=== PATIENT | female | born 1955 | race Caucasian/White ===

== ENCOUNTER 2019-07-10 04:47 | Inpatient (IN) ==
--- NOTE | 2019-06-06 11:54 | PAT Medication Instructions ---
Medication Instructions Date of Service June 06, 2019 Home Medications Lactobacillus acidoph-pectin [Acidophilus-Pectin] 2 tab PO QAM allopurinol [Zyloprim] 100 mg PO QAM diltiazem HCl [Cardizem CD] 360 mg PO QPM lorazepam 1 mg PO BID PRN metformin 500 mg PO BID multivitamin 1 tab PO QAM rivaroxaban [Xarelto] 20 mg PO PM rosuvastatin [Crestor] 10 mg PO QPM ASK your prescriber and surgeon rivaroxaban [Xarelto] 20 mg PO PM - Will need to be held 72 hours prior to surgery to receive a spinal DO NOT take the morning of surgery Lactobacillus acidoph-pectin [Acidophilus-Pectin] 2 tab PO QAM metformin 500 mg PO BID multivitamin 1 tab PO QAM Take morning of surgery With a small sip of water, OTHERWISE NOTHING TO EAT OR DRINK AFTER MIDNIGHT: allopurinol [Zyloprim] 100 mg PO QAM lorazepam 1 mg PO BID NEEDED (if needed; STOP four hours before surgery) Take evening before surgery diltiazem HCl [Cardizem CD] 360 mg PO QPM lorazepam 1 mg PO BID NEEDED (if needed) metformin 500 mg PO BID rosuvastatin [Crestor] 10 mg PO QPM Other Notes If you have any questions please call us at [phone] or [phone] or [phone] or [phone]
--- NOTE | 2019-06-06 13:34 | Anesthesiology Consultation ---
Date of Service June 06, 2019 Assessment & Plan (1) Encounter for pre-operative examination: - No previous anesthesia records available. Chart Review Chart Review: Acceptable Risk for Surgery and Patient seen in Pre Admission Test ing Consults Requested medical (Dr. Judd (06/08)) Patient was seen by PCPs office on 06/08/19 for pre-operative evaluation. Per note from that visit, "Patient has acceptable risks for right total knee replacement." Teaching & Discussion Pre-Anesthesia Teaching/Discussion Notes: Instructed NPO after midnight before surgery, except medications with 15 cc of water. Medication instructions provided according to the PAT guidelines. History Surgery Operation Date: 07/10/19 07:00 Proposed Procedures p Right Total Knee Arthroplasty - Ahmet Herrera MD Height/Weight Height: 5 ft 5 in Weight: 112.4 kg Allergies Allergy/AdvReac Type Severity Reaction Status Date / Time No Known Allergies Allergy Unverified 06/02/19 14:20 Medications Home Medications Medication Instructions Recorded Confirmed Last Taken Lactobacillus acidoph-pectin 2 tab PO QAM 06/02/19 06/02/19 Unknown [Acidophilus-Pectin] allopurinol [Zyloprim] 100 mg PO QAM 06/02/19 06/02/19 Unknown diltiazem HCl [Cardizem CD] 360 mg PO QPM 06/02/19 06/02/19 Unknown lorazepam 1 mg PO BID PRN 06/02/19 06/02/19 Unknown metformin 500 mg PO BID 06/02/19 06/02/19 Unknown multivitamin 1 tab PO QAM 06/02/19 06/02/19 Unknown rivaroxaban [Xarelto] 20 mg PO PM 06/02/19 06/02/19 Unknown rosuvastatin [Crestor] 10 mg PO QPM 06/02/19 06/02/19 Unknown Past Medical History Medical History Atrial fibrillation 07/2018 - FOLLOWS W/ DR. KARLI LOPEZ ([facility]) Diabetes mellitus, type 2 NIDDM Hiatal hernia History of gout Left inguinal hernia Osteoarthritis Precancerous skin lesion REMOVED FROM FACE Sleep apnea CPAP Exercise / Class Metabolic Activity II 4-5 Yardwork/Stairs/Walk up hill (Walks 1/2 - 1 mile three times per week. Able to climb stairs. Denies CP or SOB with activity. ) Past Surgical History Surgical History History of arthroscopy of right knee History of cardiac cath 2010 OR 2011 - [facility] - CP - NO STENTS/ANGIOPLASTY History of colonoscopy History of esophagogastroduodenoscopy (EGD) History of incisional hernia repair History of left knee replacement History of removal of cyst RT BREAST History of tonsillectomy and adenoidectomy History of total abdominal hysterectomy and bilateral salpingo-oophorectomy History of tubal ligation Past Anesthesia History No Hx of Anesthesia Complications and No Family Hx of Anesthesia Complications History of PONV No Hx of PONV and No Hx of Motion Sickness Social History Smoking Status: Never smoker Do You Dip or Chew Tobacco: No Hx Alcohol Use: No Hx Substance Use: No substance use type: does not use Review of Systems Patient denies chest pain, shortness of breath, dyspnea on exertion,reflux, cough, wheezing, palpitations. +Joint Pain (Knee) Physical Exam Vital Signs BP: 155/76 P: 63 R: 14 T: 97.9 SPO2: 96% on RA Constitutional + morbidly obese ENMT Thyromental Distance: > or= 3.5 Finger Breadths (3.5) Mallampati Class: III Neck normal visual inspection, trachea midline and + thick neck; neck extension not limited Respiratory normal respiratory effort Auscultation: lungs clear to auscultation bilaterally Cardiovascular Rate/Rhythm: regular rate and regular rhythm Heart Sounds: no murmur Vessels: no carotid bruit Neurologic moves all extremities Psychiatric Orientation: alert and oriented x 3 Testing Laboratory Results 06/06/19 14:01 PT 10.0 Seconds (9.0-12.0) 06/06/19 14:01 INR 1.0 (0.9-1.1) 06/06/19 14:01 APTT 25.1 Seconds (21.0-31.0) 06/06/19 14:01 Urine Color Yellow 06/06/19 14:01 Urine Appearance Clear (Clear) 06/06/19 14:01 Urine pH 5.0 (4.5-7.5) 06/06/19 14:01 Ur Specific [place] 1.016 (1.000-1.030) 06/06/19 14:01 Urine Protein Negative (Negative) 06/06/19 14:01 Urine Glucose (UA) Negative (Negative) 06/06/19 14:01 Urine Ketones Negative (Negative) 06/06/19 14:01 Urine Nitrite Negative (Negative) 06/06/19 14:01 Ur Leukocyte Esterase 1+ (Negative) H 06/06/19 14:01 Urine WBC (Auto) 1-5 /hpf (0-5) 06/06/19 14:01 Urine RBC (Auto) 0-4 /hpf (0-4) 06/06/19 14:01 U Hyaline Cast (Auto) 1-5 /lpf (0-5) 06/06/19 14:01 U Epithel Cells (Auto) >30 /lpf (0-5) H 06/06/19 14:01 Urine Bacteria (Auto) Negative (Negative) 06/06/19 14:01 Blood Type A Positive 06/06/19 14:01 Antibody Screen NEGATIVE 06/06/19 14:01 [facility] 05/15/19 SODIUM: 141 POTASSIUM: 4.2 CHLORIDE: 104 CO2: 28 BUN: 17 CREATININE: 1.0 GLUCOSE: 134 HgBA1C: 7.0 Electrocardiogram Date: 06/06/19 Findings: + NSR @ (63) and + no change from (12/30/10) Left axis deviation Chest X-Ray Date: 06/06/19 Findings: + NAD FINDINGS: PA and lateral chest radiographs are compared to study dated 12/30/2010. The heart is of normal for projection noting atherosclerotic calcification of the thoracic aorta. There is mild left basilar atelectasis. The lungs and pleural spaces are otherwise clear. There is no pneumothorax. The skeletal structures are osteopenic. The bony thorax appears intact. IMPRESSION: No active disease in the chest.
--- NOTE | 2019-06-06 14:31 | XRay Report ---
TWO VIEW CHEST CLINICAL HISTORY: Preoperative examination. FINDINGS: PA and lateral chest radiographs are compared to study dated 12/30/2010. The heart is of norm al for projection noting atherosclerotic calcification of the thoracic aorta. There is mild left basi lar atelectasis. The lungs and pleural spaces are otherwise clear. There is no pneumothorax. The skel etal structures are osteopenic. The bony thorax appears intact. IMPRESSION: No active disease in the chest. Electronically signed by: Simone Hall M.D. 06/06/2019 2:30 PM
[2019-06-06 14:59] LABS: Basophils # (auto) 0.01 K/uL (0-0.2); Basophils % (auto) 0.1 %; Hematocrit (blood only) 41.4 % (37-47); Hemoglobin 13.6 g/dL (12.0-16.0); Immature Granulocytes # (auto) 0.04 K/uL (0.00-0.02); Immature Granulocytes % (auto) 0.5 %; Lymphocytes # (auto) 0.99 K/uL (1.2-3.4); Lymphocytes % (auto) 11.7 %; Mean Corpuscular Hgb Conc 32.9 g/dL (32-36); Mean Corpuscular Volume 90.6 fL (80-100); Mean Platelet Volume 10.1 fL (7.4-10.4); Monocytes # (auto) 0.14 K/uL (0.11-0.59); Monocytes % (auto) 1.7 %; Neutrophils # (auto) 7.26 K/uL (1.4-6.5); Platelet Count 257 K/uL (130-400); Red Blood Count 4.57 M/uL (4.2-5.4); White Blood Count 8.44 K/uL (4.8-10.8)
[2019-06-06 15:05] LABS: Appearance Urine Clear (Clear); Bacteria Urine Automated Negative (Negative); Bilirubin Urine Negative (Negative); Blood Urine Negative (Negative); Color Urine Yellow; Epithelial Cell Urine Auto >30 /lpf (0-5); Glucose Urine UA Negative (Negative); Ketones Urine Negative (Negative); Leukocyte Esterase Urine 1+ (Negative); Nitrite Urine Negative (Negative); Protein Urine Negative (Negative); RBC Urine Automated 0-4 /hpf (0-4); Specific Gravity Urine 1.016 (1.000-1.030); Urobilinogen Urine Negative (Negative)
[2019-06-06 15:18] LABS: Partial Thromboplastin Ratio 0.9; Partial Thromboplastin Time 25.1 Seconds (21.0-31.0)
--- NOTE | 2019-07-08 16:41 | History and Physical Report ---
DATE OF ADMISSION: 07/10/2019 CHIEF COMPLAINT: Chronic right knee pain and instability. HISTORY OF PRESENT ILLNESS: This is a 63-year-old female patient of Dr. Herrera'mariza complaining of chronic right knee pain and instability, longstanding, now progressively getting worse. The patient has failed conservative treatment including acetaminophen, home exercise program and the use of a wrap. The patient cannot take anti-inflammatories due to her use of Xarelto. The patient has increased pain with weightbearing activities and her pain does interfere with her activities of daily living. The patient has been diagnosed with end-stage osteoarthritis per clinical and radiographic exam and now wishes to proceed with a right total knee arthroplasty. PAST MEDICAL HISTORY: Hypertension, hypercholesterolemia, atrial fibrillation, sleep apnea with the use of CPAP, diabetes mellitus, hiatal hernia, obesity. SOCIAL HISTORY: Nonsmoker, nondrinker. PAST SURGICAL HISTORY: Hiatal hernia, right knee replacement, hysterectomy and meniscal repair of the knee. FAMILY HISTORY: Noncontributory. REVIEW OF SYSTEMS: Chronic right knee pain and instability. Otherwise, denies any shortness of breath, chest pain, nausea, vomiting or any other joint complaints. MEDICATIONS: 1. Metformin 500 mg twice daily. 2. Zyloprim 100 mg 3 times daily. 3. Xarelto 20 mg daily. 4. Multivitamin daily. 5. Lorazepam 1 mg 3 times daily as needed. 6. Diltiazem 360 mg daily. 7. Acidophilus Pectin 75 million cells per 100 mg capsule daily. 8. Crestor 10 mg daily. ALLERGIES: No known drug allergies. PHYSICAL EXAMINATION: GENERAL: Well-developed, well-nourished 63-year-old female in no acute distress. She is alert and oriented x3 and pleasant. HEENT: Normocephalic, atraumatic. Extraocular motions are intact. Pupils are equal and reactive to light. HEART: Regular rate and rhythm, no murmurs. LUNGS: Clear. ABDOMEN: Soft, nontender, bowel sounds present. EXTREMITIES: Right knee limited range of motion of 0-90 with pain. She has a neutral alignment and is obese. She has 5/5 strength with pain. Neurologically and neurovascularly, she is intact in her right lower extremity. DIAGNOSES: Right knee end-stage osteoarthritis, hypertension, hypercholesterolemia, atrial fibrillation, sleep apnea with the use of CPAP, diabetes mellitus, hiatal hernia and obesity. PLAN: The patient was advised of her diagnosis. Indications, risks, benefits, postop course have all been reviewed. The patient wished to proceed with a right total knee arthroplasty. Necessary consent forms, preoperative testing and clearances will be obtained.
[2019-07-10] MEDS ORDERED: CeleBREX 200 MG CAP PO SCH (06:00)
[2019-07-10] MEDS ORDERED: ROPIVACAINE 0.5% HCL/PF 150 MG, BUPIVACAINE 0.5% MPF 30 ML, EPINEPHrine 30MG/30ML (OR U... INSTIL SCH (06:00)
[2019-07-10] MEDS ORDERED: FAMOTIDINE 20 MG TAB PO SCH (06:00)
[2019-07-10] MEDS ORDERED: LR 500ML BOLUS, THEN 15ML/HR IV SCH (06:00)
[2019-07-10] MEDS ORDERED: GABAPENTIN 300 MG CAP PO SCH (06:00)
[2019-07-10] MEDS ORDERED: CEFAZOLIN 2000MG 2,000 MG/15 ML SYR IV SCH (06:00)
[2019-07-10] MEDS ORDERED: ACETAMINOPHEN 500 MG TAB PO SCH (06:00)
[2019-07-10] MEDS ORDERED: METOCLOPRAMIDE HCL 10 MG TABLET PO SCH (06:00)
[2019-07-10] MEDS ORDERED: BUPIVACAINE 0.5 % 5 MG/1 ML PF 10ML VIAL ONE (06:31)
[2019-07-10] MEDS ORDERED: BUPIVACAINE 0.25% 30 ML VIAL ONE (06:31)
[2019-07-10] MEDS ORDERED: PROPOFOL IV EMULSION 10 MG/ML 20 ML VIAL IV ONE (06:40)
[2019-07-10] MEDS ORDERED: MIDAZOLAM HCL 1 MG/ML 2ML VIAL ONE (06:40)
[2019-07-10] MEDS ORDERED: fentaNYL citrate 100 MCG/2 ML VIAL ONE (06:40)
[2019-07-10] MEDS ORDERED: KETAMINE HCL INJ 50 MG/ML 10 ML VIAL ONE (06:42)
[2019-07-10] MEDS ORDERED: ORTHO JOINT ANESTHETIC ONE (06:50)
[2019-07-10] MEDS ORDERED: BACITRACIN INJ 50,000 UNIT VIAL ONE (06:50)
--- NOTE | 2019-07-10 07:00 | History & Physical Bridge Note ---
Date of Service July 10, 2019 History & Physical Bridge Note I have examined the patient, reviewed the History & Physical and in the interval since the performance of the History & Physical I have noted the following changes of clinical significance: no changes noted
[2019-07-10] MEDS ORDERED: HYDROmorphone INJ 1 MG/ML SYRINGE IV PRN (07:23)
[2019-07-10] MEDS ORDERED: fentaNYL citrate 100 MCG/2 ML VIAL IV PRN (07:23)
[2019-07-10] MEDS ORDERED: ONDANSETRON INJ 2 MG/ML 2 ML VIAL IV PRN (07:23)
[2019-07-10] MEDS ORDERED: ATROPINE SULFATE 0.1 MG/ML 10ML SYR IV PRN (07:23)
[2019-07-10] MEDS ORDERED: PROMETHAZINE HCL 12.5 MG in SODIUM CHLORIDE 0.9% 50 ML IV PRN (07:23)
[2019-07-10] MEDS ORDERED: ePHEDrine sulfate 50 MG/ML AMP IV PRN (07:23)
[2019-07-10] MEDS ORDERED: LIDOCAINE HCL 2% 2 ML VIAL/AMP(20MG/ML) INFIL ONE (07:41)
--- NOTE | 2019-07-10 08:40 | Post Operative Brief Note ---
Immediate Post Op Note v1 Date of Surgery July 10, 2019 Pre & Post Diagnosis Operation Date: 07/10/19 07:00 Pre-Op Diagnosis: Right knee end stage osteoarthritis, morbid obesity BMI 41.5 Post-Op Diagnosis: Right knee end stage osteoarthritis, morbid obesity BMI 41.5 Procedure Operation Date: 07/10/19 07:00 Actual Procedures p Right Total Knee Arthroplasty(Right) increased difficulty BMI 41.5- Ahmet Herrera MD Surgeon Ahmet Herrera MD Junior Linux Administrator Mike RAMSAY Estimated Blood Loss 5 Findings Consistent with Post-Op Diagnosis Specimens Bone cuts Drains Hemovac Drain (dual trocar) Anesthesia Type MAC Spinal Regional Complications Tibia fracture medial tibial plateau Disposition Accompanied Patient To Recovery: No Disposition: Recovery Room Overlapping Procedure I was present for: the critical portions of procedure.
--- NOTE | 2019-07-10 09:50 | XRay Report ---
XR knee RT 2V routine CLINICAL HISTORY: Surgical Post Op COMPARISON: None. DISCUSSION: There are postsurgical changes of a total right knee arthroplasty and patellar resurfacin g. Overlying skin constantine and surgical drains are evident. The femoral and tibial components appear w ell seated. There is aortic the soft tissues consistent with recent surgery. IMPRESSION: Postsurgical changes of a total right knee arthroplasty. Electronically signed by: Riccardo Orozco M.D. 07/10/2019 9:48 AM
--- NOTE | 2019-07-10 10:31 | Anesthesiology Progress Note ---
Date of Service July 10, 2019 Anesthesia Post Procedure Vital Signs Vital Signs: Temp Pulse Pulse Resp BP BP Pulse Ox 07/10/19 10:25 36.6 C 70 20 149/70 H 95 07/10/19 10:15 68 12 122/62 92 07/10/19 10:05 72 16 132/67 94 07/10/19 09:55 66 20 136/60 94 07/10/19 09:45 66 16 138/69 97 07/10/19 09:35 68 15 147/62 H 98 07/10/19 09:25 69 14 139/59 L 98 07/10/19 09:15 70 12 139/58 L 99 07/10/19 09:07 36.7 C 74 20 131/50 L 100 07/10/19 05:33 36.5 C 71 20 175/68 H 96 Transfer of Care Handoff Completed per policy Notes Mental Status: alert / awake / arousable and participated in evaluation Nausea / Vomiting: adequately controlled Pain: adequately controlled Airway Patency, RR, SpO2: stable & adequate BP & HR: stable & adequate Hydration State: stable & adequate Neuraxial Anesthesia: was administered and sensory block is resolving Anesthetic Complications: no major complications apparent and Pt Satisfied with anesthetic care
--- NOTE | 2019-07-10 10:39 | Operative Report ---
Post Operative Report Pre & Post Diagnosis Operation Date: 07/10/19 07:00 Pre-Op Diagnosis: Right knee end stage osteoarthritis morbid obesity BMI 41.5 Post-Op Diagnosis: Right knee end stage osteoarthritis morbid obesity BMI 41.5 Procedure Operation Date: 07/10/19 07:00 Actual Procedures p Right Total Knee Arthroplasty(Right) increased difficulty due to BMI 41.5, superficial wound VAC- Ahmet Herrera MD Surgeon Ahmet Herrera MD [employer] Mike RAMSAY Estimated Blood Loss 5 Findings Consistent with Post-Op Diagnosis Specimens Bone cuts Drains 2 Hemovac Anesthesia Type MAC Spinal Regional Complications none Disposition Accompanied Patient To Recovery: No Indications 63-year-old female with chronic right knee pain failed conservative management. Patient has end-stage osteoarthritis in the knee tricompartmental DJD [id number] medial lateral compartment with varus knee. She has obesity BMI 41.5. She had successful left knee replacement. Description of Procedure The patient was taken to the operating room and anesthetized under spinal MAC regional. Patient was placed supine on the the operating table. A pneumatic tourniquet was placed about the obese right upper thigh. The knee exam demonstrated limited range of motion -5 to 95 degrees range of motion no instability with stiff knee and obese leg. Some of her flexion is limited by her Medial thigh to the size of her thigh. The involved leg was elevated exsanguinated with Esmarch bandage and the pneumatic tourniquet was raised to 350 millimeters mercury. A longitudinal incision was made across the anterior knee. Skin flaps were elevated. An incision was made into the medial retinaculum and extended up into the mid third of the quadriceps tendon and extended down to the tibial tubercle. Intra-articular findings demonstrated tricompartmental DJD [id number] in the medial femoral condyle lateral femoral condyle due to subluxation on the tibia and advanced patellofemoral OA with large osteophytes.. The knee was exposed by excising cruciate ligaments and menisci. The infrapatellar fat pad was resected. The fat pad over the anterior femur at the upper aspect of the articular surface was resected for placement of the component in that area. A subperiosteal peel lateral release was performed around the patella. The [employer] journey 2.0 total knee arthroplasty system was utilized for the procedure. The custom femoral cutting guide was pinned in position. The distal femoral cut was made. The size 5, 5 in 1 cutting block was placed. The anterior posterior and chamfer cuts were made. The knee was extended and a free hand cut technique was performed to the patella. The patella with was measured and the width was reproduced using a 35 patella component. 3 drill holes are made for the patella component pegs. The tibia was then subluxed. The custom tibial cutting block was pinned in position and the proximal tibial cut was made with the oscillating saw. The size 4 tibial trial was externally rotated in line with the tibial tubercle and pinned in position. The punch for the stem was used. The femoral trial was inserted and centered the notch cutting devices were used and the collet was placed. Tibial trials were used for the insert. The size 11 trial gave balanced ligaments through full range of motion. Patella tracking was assessed with range of motion. The patella tracked centrally. The trials were removed. The Orthomix anesthetic cocktail was injected per protocol. The cut bone surfaces and soft tissue were copiously irrigated with antibiotic solution with bacitracin. The final components were cemented with Simplex cement. After the tibia was inserted I did notice a crack in the anterior medial tibial plateau essentially nondisplaced and about a centimeter half in length. The final components were 5 right [employer] journey 2.0 femur, 4 primary tibial baseplate, 11 mm posterior stabilized polyet hylene insert and 35 patella symmetrical. While the cement cured the Betadine soak was used per protocol. When the cement cured the knee was copiously irrigated with pulsatile lavage antibiotic solution with bacitracin. 2 drains were brought out laterally connected to Hemovac. The quadriceps tendon and medial retinaculum were closed with interrupted [id number] #1 Vicryl sutures. The knee was taken through full range of motion and repair was secure. The nondisplaced fracture was stable with passive range of motion and there was no instability of the knee with stress the ligaments. The subcutaneous tissues were closed with 2-0 Vicryl sutures. The skin was closed with constantine. A sterile superficial wound VAC was applied. The tourniquet was let down and the patient had good capillary refill to the extremity. The patient tolerated the procedure well. Was generalized increased level difficulty with exposure during the procedure due to her obesity. My physician assistant professor of biochemistry Mike RAMSAY assisted in the procedure including prepping draping leg positioning soft tissue retraction instrument management and assisted in the closure ,dressings application and will participate in postoperative care the patient. I attest to the content of the Intraoperative Record and any orders documented therein. Any exceptions are noted below.
[2019-07-10] MEDS ORDERED: MAGNESIUM HYDROXIDE SUSP 30 ML UDC PO PRN (10:47)
[2019-07-10] MEDS ORDERED: HYDROmorphone INJ 0.5 MG/0.5 ML SYR IV PRN (10:47)
[2019-07-10] MEDS ORDERED: BISACODYL 10 MG SUPP PR PRN (10:47)
[2019-07-10] MEDS ORDERED: OXYCODONE HCL IR 5 MG TAB (IMMEDIATE RELEASE) PO PRN (10:47)
[2019-07-10] MEDS ORDERED: LORazepam 1 MG TAB PO PRN (10:47)
[2019-07-10] MEDS ORDERED: NALOXONE HCL 0.4 MG/1 ML VIAL/CARP IV PRN (10:47)
[2019-07-10] MEDS ORDERED: PHARMACY GLYCEMIC MGMT CONSULT PRN (10:59)
[2019-07-10] MEDS: SODIUM CHLORIDE 0.9% 1000ML 1,000 ML IV SCH ×2 (11:29→21:22)
[2019-07-10] MEDS ORDERED: CARBOHYDRATES FOR HYPOGLYCEMIA PO PRN (11:30)
[2019-07-10] MEDS ORDERED: GLUCOSE 10 TABS/TUBE PO PRN (11:30)
[2019-07-10] MEDS ORDERED: DEXTROSE 50% 50 ML SYRINGE IV PRN (11:30)
[2019-07-10] MEDS ORDERED: GLUCOSE 40% GEL 15 GM TUBE PO PRN (11:30)
[2019-07-10] MEDS ORDERED: GLUCAGON FOR INJ 1 MG VIAL SQ PRN (11:30)
--- NOTE | 2019-07-10 11:50 | Pharmacy Report ---
Glycemic Control Consultation - Date of Service July 10, 2019 - Scope Scope: Glycemic Pharmacist consulted by GURINDER Matos on 07/10 for glycemic control and to write orders per [facility] inpatient glycemic control protocol - Objective Weight: 112.99 kg Accuchecks BSG (last 24hrs): 07/10/19 07/10/19 05:28 09:23 POC Glucose 147 H 109 H - Recent Pertinent Medications Outpatient Anti-diabetic Regimen: * Metformin 500 mg BID * A1c = unknown Risk Factors for Insulin Resistance: * Recent Surgery: POD 0 s/p R TKA * Diet: NPO -> type 2 diabetes - Assessment & Plan Assessment & Plan: ASSESSMENT: * 63 y/o female with type 2 diabetes, outpatient control unknown, admitted for R TKA * Pt is maintained on a single oral antidiabetic agent as an outpatient * Oral agents are not recommended for inpatient use d/t drug interactions, changing PO intake, and difficulty titrating for acute hyper/hypoglycemia. ADA recommends re-initiating outpatient oral agents 1-2 days prior to discharge if/when appropriate if they were held on admission. * Will hold oral agents for admission and utilize SQ bolus insulin regimen ONLY for now, which is the recommended regimen for inpatient glycemic control. * Will initiate weight based insulin dosing for insulin giovani patient and titrate based on BSG trends. * Will hold off on basal insulin for now since patient did not receive periop steroids and BSGs from this AM are well controlled PLAN FOR INPATIENT GLYCEMIC CONTROL: * Holding outpatient oral diabetes medications - can resume POD 1 or 2, as long as patient meets criteria * Basal insulin - none at this time * Bolus insulin * NovoLog per scale ACHS or Q6hrs while NPO * Goal Range: Low 110 mg/dL - High 140 mg/dL * Correction Factor: 20 mg/dL/unit * Nutritional / Prandial insulin per carb ratio of 1 unit per 7 grams CHO consumed * A1c ordered with AM labs as per [facility] standards for inpatient diabetes management * Please note that the plan above was derived based on current level of insulin resistance and hospital stress. These recommendations are appropriate for inpatient admission only. Plan of care upon discharge will need to be reassessed to avoid potential outpatient hypo/hyperglycemia. Thank you.
[2019-07-10] MEDS: INSULIN ASPART 100 UNITS/ML 3 ML PEN SC SCH ×3 (12:29→20:45)
[2019-07-10] MEDS: ACETAMINOPHEN 500 MG TAB PO SCH ×2 (14:00→20:43)
--- NOTE | 2019-07-10 14:18 | Hospitalist Consultation ---
Date of Consultation July 10, 2019 Assessment & Plan (1) Knee pain: s/p R TKA Pre-op Hb 13.4 As per ortho (2) TONY (obstructive sleep apnea): Has home CPAP and plans to use (3) DM type 2 (diabetes mellitus, type 2): SSI PRN Metformin only at baseline (4) Afib: continue home meds Xarelto to be restarted once deemed appropriate by ortho (5) DVT prophylaxis: As per ortho History of Present Illness Attending Physician: Ahmet Herrera MD History of Present Illness 63 y/o F who was admitted on 07/10 s/p R TKA with Dr. Herrera. Pt is doing well post-op. Tolerating PO without issue. Pt denies fever, SOB, chest pain, abd pain, n/v/c/d, LE swelling. Allergies Allergy/AdvReac Type Severity Reaction Status Date / Time No Known Allergies Allergy Verified 07/10/19 05:31 Home Medications Home Medications Medication Instructions Recorded Confirmed Type Lactobacillus acidoph-pectin 2 tab PO QAM 06/02/19 07/10/19 History [Acidophilus-Pectin] allopurinol [Zyloprim] 100 mg PO QAM 06/02/19 07/10/19 History diltiazem HCl [Cardizem CD] 360 mg PO QPM 06/02/19 07/10/19 History lorazepam 1 mg PO BID PRN 06/02/19 07/10/19 History metformin 500 mg PO BID 06/02/19 07/10/19 History multivitamin 1 tab PO QAM 06/02/19 07/10/19 History rivaroxaban [Xarelto] 20 mg PO PM 06/02/19 07/10/19 History rosuvastatin [Crestor] 10 mg PO QPM 06/02/19 07/10/19 History Patient History Medical History Atrial fibrillation 07/2018 - FOLLOWS W/ DR. KARLI LOPEZ ([facility]) Diabetes mellitus, type 2 NIDDM Hiatal hernia History of gout Left inguinal hernia Osteoarthritis Precancerous skin lesion REMOVED FROM FACE Sleep apnea CPAP Surgical History History of arthroscopy of right knee History of cardiac cath 2010 OR 2012 - [facility] - CP - NO STENTS/ANGIOPLASTY History of colonoscopy History of esophagogastroduodenoscopy (EGD) History of incisional hernia repair History of left knee replacement History of removal of cyst RT BREAST History of tonsillectomy and adenoidectomy History of total abdominal hysterectomy and bilateral salpingo-oophorectomy History of tubal ligation Family History Father Family history of diabetes mellitus Myocardial infarction Social History Preferred Language: Colombian Communication Ability: Effective Lgsw Required: No Beliefs That Will Affect Care: None Current Living Situation: Spouse Feels Safe at Home: Yes Safety Concerns: Feels Safe At This Time Smoking Status: Never smoker Do You Dip or Chew Tobacco: No ; Second Hand Exposure: No ; Hx Alcohol Use: No Hx Substance Use: No Review of Systems Review of Systems: Pertinent positives and negatives reviewed in HPI--all others negative Physical Exam Constitutional: WD/WN, vitals as above Eyes: normal visual damian by confrontation and + anicteric sclerae Neck: normal visual inspection and trachea midline Respiratory: normal respiratory effort, lungs clear to auscultation Cardiovascular: Rate/Rhythm: regular rate and regular rhythm Gastrointestinal (Abdomen): Inspection/Auscultation: abdomen not distended Percussion/Palpation: abdomen soft; abdomen nontender Musculoskeletal: Head/Neck/Chest: normocephalic and head atraumatic negative for edema, peripheral pulses intact Skin: no rashes, warm and dry Neurologic: awake; not confused Speech / Cognition: normal speech Psychiatric: A+Ox3, euthymic affect Results & Data Vital Signs (Past 12 Hours) Vital Signs Temp Pulse Pulse Resp BP BP Pulse Ox 07/10/19 13:45 36.6 C 63 16 138/77 96 07/10/19 12:42 36.5 C 62 17 144/78 H 97 07/10/19 11:45 36.6 C 70 17 157/74 H 96 07/10/19 11:15 36.9 C 68 15 150/79 H 97 07/10/19 10:45 36.7 C 72 14 153/81 H 97 07/10/19 10:35 75 16 134/71 94 07/10/19 10:25 36.6 C 70 20 149/70 H 95 07/10/19 10:15 68 12 122/62 92 07/10/19 10:05 72 16 132/67 94 07/10/19 09:55 66 20 136/60 94 07/10/19 09:45 66 16 138/69 97 07/10/19 09:35 68 15 147/62 H 98 07/10/19 09:25 69 14 139/59 L 98 07/10/19 09:15 70 12 139/58 L 99 07/10/19 09:07 36.7 C 74 20 131/50 L 100 07/10/19 05:33 36.5 C 71 20 175/68 H 96 PG Care Time/CCT Total # of Minutes Spent Total Time Spent with Patient: Total time spent is greater than 50% in coordination of care (as documented) at patient's floor/unit and/or counseling patient:
[2019-07-10] MEDS: ONDANSETRON INJ 2 MG/ML 2 ML VIAL IV PRN (15:05)
[2019-07-10] MEDS: CEFAZOLIN 2000MG 2,000 MG/15 ML SYR IV SCH (18:05)
[2019-07-10] MEDS: ROSUVASTATIN CALCIUM 10 MG TAB PO SCH (20:42)
[2019-07-10] MEDS: CeleBREX 200 MG CAP PO SCH (20:43)
[2019-07-10] MEDS: dilTIAZem HCL 120 MG CAPCR PO SCH (20:43)
[2019-07-10] MEDS: DOCUSATE SODIUM 100 MG CAP PO SCH (20:43)
[2019-07-10] MEDS: SENNA 8.6 MG TAB PO SCH (20:44)
[2019-07-11] MEDS: CEFAZOLIN 2000MG 2,000 MG/15 ML SYR IV SCH (01:54)
[2019-07-11] MEDS: ACETAMINOPHEN 500 MG TAB PO SCH ×3 (05:13→21:16)
[2019-07-11] MEDS: ONDANSETRON INJ 2 MG/ML 2 ML VIAL IV PRN (05:13)
[2019-07-11 05:57] LABS: Hematocrit (blood only) 36.2 % (37-47); Hemoglobin 11.6 g/dL (12.0-16.0); Mean Corpuscular Volume 91.9 fL (80-100); Mean Platelet Volume 9.8 fL (7.4-10.4); Platelet Count 197 K/uL (130-400); RDW Coefficient of Variation 15.4 % (11.5-14.5); RDW Standard Deviation 52.1 fL (36.4-46.3); Red Blood Count 3.94 M/uL (4.2-5.4); White Blood Count 6.75 K/uL (4.8-10.8)
[2019-07-11 06:32] LABS: BUN Creatinine Ratio 15.6 (10-20); Calcium 7.6 mg/dl (8.5-10.1); Creatinine Clr Calc Pharmacy 74.8 ml/min; Est GFR (African American) 73.8; Est GFR (Non-African American) 63.7; Potassium 3.8 mmol/L (3.5-5.1)
[2019-07-11 06:41] LABS: Estimated Average Glucose 163 mg/dl; Hemoglobin A1C 7.3 % (4.5-5.6)
[2019-07-11] MEDS ORDERED: PROMETHAZINE HCL 25 MG in SODIUM CHLORIDE 0.9% 50 ML IV PRN (07:41)
--- NOTE | 2019-07-11 08:19 | Orthopedic Progress Note ---
Date of Service July 11, 2019 Assessment & Plan (1) Knee pain: POD #1, Right TKA PT/ OT DVT proph- Xarelto D/C planning- Home w OPPT As per medicine. Will add Tramadol in case oxycodone is causing nausea. Subjective POD #1, Main c/o is "dry heaving" and nausea. Tried Zofran, phenergan added. Patient not sure if due to pain meds. Denies SOB, C/P. Knee pain controlled well. Physical Exam Physical Exam: Right knee dressings/ drain c/d/i, no drainage, toes/ ankle mobile, no calf tenderness. A&Ox3. Results & Data Vital Signs (Past 12 Hours) Vital Signs Temp Pulse Resp BP BP Pulse Ox 07/11/19 07:13 36.5 C 61 16 127/90 93 07/11/19 03:49 36.4 C L 59 L 18 135/77 96 07/10/19 23:25 36.5 C 65 18 136/72 97
[2019-07-11] MEDS ORDERED: MULTIVITAMIN TAB PO SCH (09:00)
[2019-07-11] MEDS: DOCUSATE SODIUM 100 MG CAP PO SCH ×2 (09:08→21:16)
[2019-07-11] MEDS: CeleBREX 200 MG CAP PO SCH ×2 (09:09→21:16)
[2019-07-11] MEDS: MULTIVITAMIN TAB PO SCH (09:09)
[2019-07-11] MEDS: LACTOBACILLUS ACIDOPHILUS (FLORANEX) TAB PO SCH (09:09)
[2019-07-11] MEDS: ALLOPURINOL 100 MG TAB PO SCH (09:09)
[2019-07-11] MEDS: INSULIN ASPART 100 UNITS/ML 3 ML PEN SC SCH ×4 (09:24→21:35)
--- NOTE | 2019-07-11 10:46 | Pharmacy Report ---
Pharmacy Glycemic Short Note 2 - Date of Service July 11, 2019 - Glycemic Short BSG Results (Last 24 hours): 07/10/19 07/10/19 07/10/19 12:01 17:15 20:37 Glucose POC Glucose 99 128 H 177 H 07/11/19 07/11/19 05:28 07:59 Glucose 146 H POC Glucose 140 H Outpatient Anti-diabetic Regimen: * Metformin 500 mg BID * A1c = 7.3% 07/11/19 Risk Factors for Insulin Resistance: * Recent Surgery: POD 1 s/p R TKA * Diet: NPO type 2 diabetes - Assessment & Plan Assessment & Plan: ASSESSMENT: 07/11 * Patient remains well controlled, requiring only 6 units of novolog yesterday. Per notes, patient experiencing significant nausea and has only eaten 33g CHO post op thus far. Will hold off on ordering any basal insulin for now given poor appetite and controlled BSGs. 07/10 * 63 y/o female with type 2 diabetes, outpatient control unknown, admitted for R TKA * Pt is maintained on a single oral antidiabetic agent as an outpatient * Oral agents are not recommended for inpatient use d/t drug interactions, changing PO intake, and difficulty titrating for acute hyper/hypoglycemia. ADA recommends re-initiating outpatient oral agents 1-2 days prior to discharge if/when appropriate if they were held on admission. * Will hold oral agents for admission and utilize SQ bolus insulin regimen ONLY for now, which is the recommended regimen for inpatient glycemic control. * Will initiate weight based insulin dosing for insulin giovani patient and titrate based on BSG trends. * Will hold off on basal insulin for now since patient did not receive periop steroids and BSGs from this AM are well controlled PLAN FOR INPATIENT GLYCEMIC CONTROL: * Holding outpatient oral diabetes medications - can resume POD 1 or 2, as long as patient meets criteria * Basal insulin - none at this time * Bolus insulin * NovoLog per scale ACHS or Q6hrs while NPO * Goal Range: Low 110 mg/dL - High 140 mg/dL * Correction Factor: 20 mg/dL/unit * Nutritional / Prandial insulin per carb ratio of 1 unit per 7 grams CHO consumed * A1c ordered with AM labs as per [facility] standards for inpatient diabetes management PLAN FOR DISCHARGE: * Well controlled on outpatient regimen, may continue upon discharge
[2019-07-11] MEDS ORDERED: ONDANSETRON HCL 8 MG in DEXTROSE 5% 50 ML IV PRN (11:19)
--- NOTE | 2019-07-11 12:07 | Hospitalist Progress Note ---
Date of Service July 11, 2019 Assessment & Plan (1) Knee pain: s/p R TKA Pre-op Hb 13.4 As per ortho Having some nausea related to pain medications Phenergan has been more sedative to pt d/w nursing, advised trial of zofran 8mg instead of phenergan (2) TONY (obstructive sleep apnea): Has home CPAP and plans to use (3) DM type 2 (diabetes mellitus, type 2): SSI PRN Metformin only at baseline A1c 7.3 (4) Afib: continue home meds Xarelto to be restarted once deemed appropriate by ortho (5) DVT prophylaxis: As per ortho Subjective Pt has been having n and dry heaves with PO pain medication. She had done well initially post-op, but this developed last night. Zofran was not helping, however it was given today after the pain medication. Phenergan trial did help nausea, but pt has been less interactive and a bit groggy since administration of this. States pain is ok. Did not have PT today due to nausea issues. Pt denies fever, SOB, chest pain, abd pain, c/d, LE swelling. Review of Systems Review of Systems: Pertinent positives and negatives reviewed in HPI--all others negative Physical Exam Constitutional: WD/WN, vitals as above Eyes: normal visual damian by confrontation and + anicteric sclerae Neck: normal visual inspection and trachea midline Respiratory: normal respiratory effort, lungs clear to auscultation Cardiovascular: Rate/Rhythm: regular rate and regular rhythm Gastrointestinal (Abdomen): Inspection/Auscultation: abdomen not distended Percussion/Palpation: abdomen soft; abdomen nontender Musculoskeletal: Head/Neck/Chest: normocephalic and head atraumatic Skin: no rashes, warm and dry Neurologic: awake; not confused Speech / Cognition: normal speech Psychiatric: Orientation: oriented x 3 Groggy and less alert than yesterday Results & Data Vital Signs (Past 12 Hours) Vital Signs Temp Pulse Resp BP BP Pulse Ox 07/11/19 07:13 36.5 C 61 16 127/90 93 07/11/19 03:49 36.4 C L 59 L 18 135/77 96 PG Care Time/CCT Total # of Minutes Spent Total Time Spent with Patient: Total time spent is greater than 50% in coordination of care (as documented) at patient's floor/unit and/or counseling patient:
[2019-07-11] MEDS ORDERED: RIVAROXABAN 20 MG TAB PO SCH (21:00)
[2019-07-11] MEDS: ROSUVASTATIN CALCIUM 10 MG TAB PO SCH (21:16)
[2019-07-11] MEDS: dilTIAZem HCL 120 MG CAPCR PO SCH (21:16)
[2019-07-11] MEDS: SENNA 8.6 MG TAB PO SCH (21:16)
[2019-07-12] MEDS: TRAMADOL HCL 50 MG TABLET PO PRN ×3 (00:11→10:43)
[2019-07-12] MEDS: ACETAMINOPHEN 500 MG TAB PO SCH (05:49)
[2019-07-12 06:01] LABS: Hematocrit (blood only) 38.1 % (37-47); Hemoglobin 12.2 g/dL (12.0-16.0); Mean Corpuscular Volume 92.5 fL (80-100); Mean Platelet Volume 9.7 fL (7.4-10.4); Platelet Count 195 K/uL (130-400); RDW Coefficient of Variation 15.7 % (11.5-14.5); RDW Standard Deviation 53.5 fL (36.4-46.3); Red Blood Count 4.12 M/uL (4.2-5.4); White Blood Count 6.95 K/uL (4.8-10.8)
[2019-07-12 06:27] LABS: BUN Creatinine Ratio 15.3 (10-20); Calcium 7.9 mg/dl (8.5-10.1); Creatinine Clr Calc Pharmacy 65.7 ml/min; Est GFR (African American) 63.1; Est GFR (Non-African American) 54.4; Potassium 3.8 mmol/L (3.5-5.1)
[2019-07-12] MEDS: DOCUSATE SODIUM 100 MG CAP PO SCH (08:40)
[2019-07-12] MEDS: CeleBREX 200 MG CAP PO SCH (08:40)
[2019-07-12] MEDS: LACTOBACILLUS ACIDOPHILUS (FLORANEX) TAB PO SCH (08:41)
[2019-07-12] MEDS: ALLOPURINOL 100 MG TAB PO SCH (08:41)
[2019-07-12] MEDS: MULTIVITAMIN TAB PO SCH (08:41)
[2019-07-12] MEDS: INSULIN ASPART 100 UNITS/ML 3 ML PEN SC SCH (08:43)
--- NOTE | 2019-07-12 09:43 | Orthopedic Progress Note ---
Date of Service July 12, 2019 Assessment & Plan (1) Knee pain: POD #2, Right TKA PT/ OT DVT proph- Xarelto D/C planning- Home w OPPT today As per medicine. Subjective POD #2, Nausea much better, using phenergan and tramadol. Denies SOB, Cp, N/V. Pain reasonably controlled. Physical Exam Physical Exam: Right knee provena c/d/i, no drainage, no erythema, no calf tenderness, A*Ox3. Results & Data Vital Signs (Past 12 Hours) Vital Signs Temp Pulse Resp BP Pulse Ox 07/12/19 07:26 36.5 C 64 16 145/78 H 93 07/11/19 23:33 37.5 C 72 20 128/69 91
--- NOTE | 2019-07-25 14:05 | Discharge Summary ---
HISTORY OF PRESENT ILLNESS: This is a 63-year-old female patient of Dr. Herrera'mariza complaining of chronic right knee pain and instability, longstanding, now progressively getting worse. The patient failed conservative treatment and elected to proceed with a right total knee arthroplasty. PAST MEDICAL HISTORY: Hypertension, hypercholesterolemia, atrial fibrillation, sleep apnea with the use of CPAP, diabetes mellitus, hiatal hernia and obesity. POSTOPERATIVE COURSE: The patient underwent a right total knee arthroplasty on 07/10/2019. She was followed closely with medical consultation, DVT prophylaxis in the form of Xarelto, physical therapy and pain control. Postop day 1, the patient did have some dry heaving and nausea. We discontinued the oxycodone, added tramadol and also added Phenergan. By postoperative day #2, this dry heaving and nausea had resolved and she was best treated with the tramadol and Phenergan combination, otherwise uneventful postoperative course. PHYSICAL EXAMINATION: On discharge, right knee superficial wound VAC Prevena was clean, dry and intact. There was no redness or drainage. She had no calf tenderness. Negative Homans sign. Toes and ankle were mobile. Neurologically and neurovascularly she is intact in her right lower extremity. DIAGNOSES: Status post right total knee arthroplasty with application of superficial wound VAC, hypertension, hypercholesterolemia, atrial fibrillation, sleep apnea, diabetes, hiatal hernia and obesity. PLAN: The patient was discharged home on postoperative day #2 with outpatient physical therapy. She will continue her preadmission medication with the addition of Xarelto for DVT prophylaxis, Phenergan for nausea and pain medications in the form of tramadol as needed. She will follow up as scheduled as an outpatient.
== END 2019-07-12 12:01 | disposition home or self-care (01) | DRG 470 ==
LOC: PAT 04:47 → 3E 09:14